=== PATIENT | male | born 1980 | race Caucasian/White ===

== ENCOUNTER 2021-04-19 08:56 | Outpatient (CLI) | payer BC, SELFPAY ==
--- NOTE | ~2021-04-19 | MR_ITS ---
EXAMINATION: MR shoulder RT wo con DATE: 04/19/2021 10:04 INDICATION: Right shoulder pain TECHNIQUE: Magnetic resonance imaging (MRI) of the right shoulder was performed without intravenous c ontrast. Sequences included axial PD-weighted FS FSE, coronal oblique PD-weighted FS FSE, coronal obl ique T2-weighted FS FSE, sagittal PD-weighted FS FSE, and sagittal T1-weighted SE. COMPARISON: None. FINDINGS: Coracoacromial arch: The acromion undersurface is curved in morphology (type II). The coracoacromial ligament is normal. M oderate acromioclavicular osteoarthritis with mild subarticular cystic change at the lateral head of the clavicle. Rotator cuff: Mild supraspinatus and infraspinatus tendinopathy with moderate tendinopathy at the conjoined portion of both tendons. Fluid-filled intrasubstance ganglion cyst which extends 3 cm medial to lateral solange g a longitudinal split tear in the anterior aspect of the infraspinatus tendon. The cyst measures up to 11 x 6 mm in maximal orthogonal dimensions at the medial aspect of the cyst which is located at th e level of the rim of the glenoid and tapers as it extends laterally towards the region of moderate t endinopathy at the conjoined portion of the tendon. No evident involvement of the articular or bursal sides of the tendon. No retracted tear margin or discrete the torn tendon fibers. The teres minor te ndon is normal. Mild subscapularis tendinopathy without discrete tear. Normal rotator cuff muscle bu lk and signal. Biceps tendon, glenoid labrum and glenohumeral cartilage: Long head of the biceps tendon is normal. Glenoid labrum is normal. Glenohumeral cartilage is normal. Fluid: Physiologic amount of fluid in the glenohumeral joint and biceps tendon sheath. No loose osteochondra l bodies. No abnormal fluid or increased fluid signal in the subacromial/subdeltoid bursa to suggest bursitis. Bones: Normal marrow signal with no edema, fracture or abnormal marrow replacing process. Mild cystic change at the greater tuberosity footplate of the conjoined portion of the tendon. IMPRESSION: 1. Mild to moderate rotator cuff tendinopathy greatest at the conjoined portion of the supraspinatus and infraspinatus tendon where there is a ganglion cyst along an intrasubstance longitudinal split te ar which extends medially along the anterior fibers of the infraspinatus. 2. Moderate acromioclavicular osteoarthritis. Reviewed, dictated and finalized at location A. IMPRESSION: 1. Mild to moderate rotator cuff tendinopathy greatest at the conjoined portion of the supraspinatus and infraspinatus tendon where there is a ganglion cyst a long an intrasubstance longitudinal split tear which extends medially along the anterior fibers of the infraspinatus. 2. Moderate acromioclavicular osteoarthritis.
== END 2021-04-19 08:57 ==
PROVIDERS: PCP Internal Medicine; Visit Provider Internal Medicine
DX: M19.011 Primary osteoarthritis, right shoulder (principal)
CPT/HCPCS: 73221

== ENCOUNTER → 2021-06-10 13:14 | Outpatient (CLI) | payer BC, OTHER, SELFPAY ==
--- NOTE | ~2021-06-10 | XR_ITS ---
EXAMINATION: XR fl inj shoulder RT - MR/CT EXAM DATE: 06/10/2021 14:25 INDICATION: Right shoulder pain, 3-4 months. 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 Limited range of motion. TECHNIQUE: This procedure was performed by Dr. Dwain Ware, radiologist. I discussed procedure inclu ding the risks, benefits and alternatives with the patient. Risks discussed included bleeding and inf ection. The patient understood the risks and agreed to proceed. He states he was familiar with having joints injected. A time-out was performed to verify the patient's name, date of , and procedure. The skin over lying the right shoulder joint was prepped and draped in usual sterile fashion. Anesthetic was admin istered with 2 milliliters 1% lidocaine subcutaneously. A 22 G needle was advanced under fluoroscopi c guidance into the joint. A total of 12 mL of 1:200 of 529 mg/mL Multihance, 1:4 lidocaine, and 1:4 Omnipaque 240 was instilled. The needle was removed and the entry site was cleaned and dressed. T here were no immediate complications. Pulsed dose reduction fluoroscopy was used with fluoroscopic t kasey of 0.1 minus. The DAP for this procedure was 0.4 Gycm2. A total of 7 images obtained for the ex am. The procedure was performed on 06/10/2021. FINDINGS: Real-time fluoroscopy demonstrates the needle and contrast in the right shoulder joint. IMPRESSION: Successful right shoulder joint injection. Reviewed, dictated and finalized at location B. 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
--- NOTE | ~2021-06-10 | MR_ITS ---
EXAMINATION: MR shoulder RT w con DATE: 06/10/2021 15:00 INDICATION: Right shoulder pain TECHNIQUE: Magnetic resonance imaging (MRI) of the right shoulder was performed following intra-tiesha cular gadolinium contrast injection and without intravenous contrast. Details of the glenohumeral vannessa nt injection have been dictated separately. Sequences included axial T2-weighted FS FSE, axial T1-we ighted FS FSE, coronal oblique T1-weighted FS FSE, coronal oblique T2-weighted FSE, sagittal T2-weigh becky FS FSE, sagittal T1-weighted FSE, and ABER (abduction external rotation) T1-weighted FS FSE. COMPARISON: 04/19/2021 FINDINGS: Coracoacromial arch: The acromion undersurface is curved in morphology (type II). The coracoacromial ligament is normal. M oderate acromioclavicular osteoarthritis with subarticular cystic change at the lateral head of the c lavicle. Rotator cuff: Mild supraspinatus and infraspinatus tendinopathy with moderate tendinopathy at the conjoined portion of both tendons. The previously seen ganglion cyst along the anterior margin of the infraspinatus is no longer visualized, likely decompressed. There is however an unchanged second tiny component of th e ganglion cyst or posteriorly along the myotendinous junction of the infraspinatus which opacifies w ith contrast which originates laterally at a small articular sided tear at the footplate of the conjo ined portion of the tendon. The tear which is best appreciated on ABER series 14, images 7 & 8 approx imately 5 mm AP and involves approximately one half of the tendon thickness. There is no medial retra ction of the torn portion of the tendon. There is however a 2 cm more medial contrast filled intrasub stance extension of the tear before transitioning to the tiny intrasubstance split tear communicating with the previous noted intrasubstance ganglion cyst. The teres minor tendon is normal. Mild subscap ularis tendinopathy without discrete tear. Normal rotator cuff muscle bulk and signal. Biceps tendon, glenoid labrum and glenohumeral cartilage: Long head of the biceps tendon is intact. Glenoid labrum is normal. Glenohumeral cartilage is normal. Bones and other: Normal marrow signal with no edema, fracture or abnormal marrow replacing process. Small erosions or cystic change which opacifies with contrast at the greater tuberosity footplate of the conjoined port ion of the tendon at the site of the tear. No abnormal fluid signal or contrast in the subacromial/morales bdeltoid bursa. IMPRESSION: 1. Mild to moderate rotator cuff tendinopathy centered at the conjoined portion of the tendon where t here is a small moderate severity articular sided partial-thickness tear. 2. Moderate acromioclavicular osteoarthritis. Reviewed, dictated and finalized at location A. TS PHYSIOTHERAPIST IMPRESSION: 1. Mild to moderate rotator cuff tendinopathy centered at the conjoined portion of the tendon where there is a small moderate severity articular sided partial -thickness tear. 2. Moderate acromioclavicular osteoarthritis.
== END ==
PROVIDERS: PCP Internal Medicine
DX: M19.011 Primary osteoarthritis, right shoulder (principal)
CPT/HCPCS: 23350; 73222; 77002; A9577; Q9966